=== PATIENT | female | born 1990 | race Caucasian/White ===

== ENCOUNTER → 2019-01-04 | Outpatient (CLI) | payer SELFPAY ==
--- NOTE | 2019-01-04 17:08 | RADIOLOGY REPORT (SQ) ---
EXAM DESCRIPTION: U/S OB 14+ TRNABD 1GES W/O DOP COMPLETED DATE/TIME: 01/04/2019 3:55 pm REASON FOR STUDY: Z34.02 ENCNTR FOR SUPRVSN OF NORMAL FIRST PREG, SECOND TRIMESTER Z34.02 ENCNTR FO R SUPRVSN OF NORMAL FIRST PREG, SECOND TRIME COMPARISON: None. TECHNIQUE: Static and Dynamic grayscale imaging performed of gravid uterus using transabdominal appr oach. Additional selected color Doppler and spectral images recorded. All stored on PACS. LIMITATIONS: Limited by positioning. FINDINGS: FETUSES SEEN:1 EGA: 16 week 2 day Calculated using BPD,FL,HC,AC documented on images. Mild discrepancy with clinica l dates (13 week 2 day). ROBERTO: 06/19/2019 EFW: 151 +/- 22 grams PERCENTILE: Not applicable. Fetus less than or equal to 20 weeks gestation. CHRISTOPHER: Largest vertical pocket is 2.6 cm. PLACENTA: Anterior. GRADE: I PRESENTATION: Variable. ANATOMY: HEART RATE: 152 beats per minute. FOUR CHAMBER HEART: Visualized. THREE VESSEL CORD: Not visualized. CORD INSERTION: Visualized. KIDNEYS AND BLADDER: Kidneys not visualized. Bladder looks normal. STOMACH: Visualized. Appears normal. SPINE: Not visualized. BRAIN AND LATERAL VENTRICLES: Not visualized. OTHER: Upper and lower extremities grossly normal. MATERNAL ADNEXA: Maternal ovaries not visualized. CERVICAL LENGTH: Not visualized. OTHER: No other significant finding. IMPRESSION: LIVING INTRAUTERINE . ESTIMATED GESTATIONAL AGE 16 week 2 day. Limited visualization of some structures, as above. Trimester of : Second trimester - 13 weeks 1 day to 27 weeks 6 days. TECHNICAL DOCUMENTATION: JOB ID: [id number] [employer]- All Rights Reserved Reading location - IP/workstation name: [email or web address]
== END ==
LOC: RAD 15:15
PROVIDERS: ATTEND Midwife
DX: Z34.02 Encounter for supervision of normal first pregnancy, second trimester (principal)
CPT/HCPCS: 76805

== ENCOUNTER → 2019-02-09 | Outpatient (CLI) | payer SELFPAY ==
--- NOTE | 2019-02-09 15:59 | RADIOLOGY REPORT (SQ) ---
EXAM DESCRIPTION: U/S OB 14+ TRNABD 1GES W/O DOP COMPLETED DATE/TIME: 02/09/2019 2:55 pm REASON FOR STUDY: Z34.02 ENCNTR FOR SUPRVSN OF NORMAL FIRST PREG, SECOND TRIMESTER Z34.02 ENCNTR FO R SUPRVSN OF NORMAL FIRST PREG, SECOND TRIME COMPARISON: 01/04/2019. TECHNIQUE: Static and Dynamic grayscale imaging performed of gravid uterus using transabdominal appr oach. Additional selected color Doppler and spectral images recorded. All stored on PACS. LIMITATIONS: None. FINDINGS: FETUSES SEEN:1 EGA: 20 week 1 day. Calculated using BPD,FL,HC,AC documented on images. No discrepancy with clinical dates. ROBERTO: 06/28/2019. EFW: 338 g. grams CHRISTOPHER: Largest pocket 3.9 cm. PLACENTA: Anterior. PRESENTATION: Cephalic. ANATOMY: HEART RATE: 152 beats per minute. FOUR CHAMBER HEART: Visualized. THREE VESSEL CORD: Yes. CORD INSERTION: Visualized. KIDNEYS AND BLADDER: Visualized. Appear normal. STOMACH: Visualized. Appears normal. SPINE: Normal as visualized. BRAIN AND LATERAL VENTRICLES: Visualized. Appear normal. OTHER: No other significant finding. MATERNAL ADNEXA: Maternal ovaries not visualized. CERVICAL LENGTH: 3.1 cm. Closed. OTHER: No other significant finding. IMPRESSION: LIVING INTRAUTERINE . ESTIMATED GESTATIONAL AGE 20 WEEK 1 DAY. NO VISUALIZED ANOMALIES. Trimester of : Second trimester - 13 weeks 1 day to 27 weeks 6 days. TECHNICAL DOCUMENTATION: JOB ID: [id number] [employer]- All Rights Reserved Reading location - IP/workstation name: [email or web address]
== END ==
LOC: RAD 13:27
PROVIDERS: ATTEND Midwife
DX: Z34.02 Encounter for supervision of normal first pregnancy, second trimester (principal)
CPT/HCPCS: 76805

== ENCOUNTER 2019-06-09 07:27 | Inpatient (IN) | payer MEDICAID ==
[2019-06-09] MEDS ORDERED: PENICILLIN G-K 5 MILLION UNIT VIAL ONE (08:32)
[2019-06-09] MEDS ORDERED: OXYTOCIN/NORMAL SALINE 20 UNIT/1,000 ML RTUINJ ONE (08:32)
[2019-06-09] MEDS ORDERED: OXYTOCIN 10 UNIT/ML VIAL ONE (08:32)
[2019-06-09] MEDS ORDERED: LIDOCAINE 1% INJ-PF (10 MG/ML) 30 ML SDV ONE (08:32)
[2019-06-09] MEDS ORDERED: MISOPROSTOL 0.2 MG TABLET ONE (08:32)
[2019-06-09] MEDS ORDERED: PENICILLIN G POTASSIUM 5,000,000 UNIT in DEXTROSE 5%-WATER 100 ML IV ONE (08:34)
[2019-06-09] MEDS ORDERED: RINGERS SOLUTION,LACTATED 1,000 ML IV ONE (08:34)
[2019-06-09] MEDS ORDERED: RINGERS SOLUTION,LACTATED 1,000 ML IV PRN (08:34)
--- NOTE | 2019-06-09 08:44 | Admission Physical ---
Datetime Report Generated by CPN: 06/09/2019 08:43 CURRENT ADMISSION Chief Complaint: Uterine Contractions; Suspected Ruptured Membranes Admit Impression : Term, Intrauterine ; Active Labor Admit Plan: Admit to Unit Admit Plan- Other: start PCN prophylaxis for GBS+ ALLERGIES Medication Allergies: No Medication Allergies: No Known Allergies (06/09/2019) Latex: No Latex Allergies OBSTETRICAL HISTORY EDC: 06/19/2019 00:00 : 1 Para: 0 Term: 0 : 0 SAB: 0 IAB: 0 Ectopic: 0 Livin Cesareans: 0 VBACs: 0 Multiple Births: 0 Gestational Diabetes: No Rh Sensitization: No Incompetent Cervix: No LAURA: No Infertility: No ART Treatment: No Uterine Anomaly: No IUGR: No Hx Previous C/S: No Macrosomia: No Hx Loss/Stillborn: No PIH: No Hx : No Placenta Previa/Abruption: No Depression/PP Depression: Yes PTL/PROM: No Post Hemorrhage: No Obstetrical History Comments: G1; current SEE RECORDS Alcohol: No Marijuana : Yes Cocaine: No Other Illicit Drugs: Yes Illicit Drug Comments: hx of opioid use, kratom, suboxone 4 yrs ago Cigarettes: Current Everyday Smoker. 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 Surgery: No Heart Disease: No Hosp/Surgery: No Autoimmune Disorder: No Anesthetic Complications: No Kidney Disease: No Abnormal Pap Smear: No Neuro/Epilepsy: No Psychiatric Disorders: Yes Other Medical Diseases: No Hepatitis/Liver Disease: No Significant Family History: No Varicosities/Phlebitis: No Trauma/Violence : No Thyroid Dysfunction: No Medical History Comments: bipolar disorder, depression, hx of marijuana, kratom, opiate abuse, suboxone, cigarettes INFECTIOUS HISTORY Gonorrhea: Yes Genital Herpes: No Chlamydia: Yes Tuberculosis: No Syphilis: No Hepatitis: No HIV/AIDS Exposure: No Rash or Viral Illness: No HPV: No PHYSICAL EXAM General: Normal HEENT: Normal Neurologic: Normal Thyroid: Normal Heart: Normal Lungs: Normal Breast: Normal Back: Normal Abdomen: Normal Genitourinary Exam: Normal Extremities: Normal DTRs: Normal Pelvic Type: Adequate Vital Signs: Reviewed MEMBRANES Membranes: Ruptured Amniotic Fluid Color: Bloody FETUS A EGA: 38.4 Monitoring: External US FHR- Baseline: 125 Variability: Moderate 6-25bpm Accelerations: 15X15 Decelerations: None Admit Comment: at 38.4 wks presents for a labor check. +GBS w/ Hx Bipolar. Hx substance abuse as well. Pt with SROM at 0837, clear blood tinged fluid. Rapid change of cervix to 5-6 cm per RN. Plan to admit and treat w/ PCN. Pt desires an epidural. Attending MD today is Dr Lennon PLANS FOR LABOR AND DELIVERY Labor and Delivery: None Pain Management: Medications; Epidural Feeding Preference: Both Benefit of Breast Feed Discussed: Yes Circumcision: Yes INFORMED CONSENT Assignment: Luda Lennon MD Signature: with User ID: [email or web address] : with User ID: [email or web address]
[2019-06-09 08:57] LABS: APPEARANCE,URINE CLOUDY; BILIRUBIN,URINE NEGATIVE (NEGATIVE); COLOR,URINE YELLOW; GLUCOSE, URINE NEGATIVE (NEGATIVE); KETONES,URINE NEGATIVE (NEGATIVE); LEUKOCYTE ESTERASE,URINE SMALL (NEGATIVE); NITRITE,URINE NEGATIVE (NEGATIVE); PROTEIN,URINE NEGATIVE (NEGATIVE); URINE SPECIFIC GRAVITY 1.019; UROBILINOGEN,URINE NEGATIVE mg/dL (<2.0)
[2019-06-09 09:13] LABS: ABSOLUTE LYMPHOCYTES (AUTO) 2.1 10^3/uL (0.5-4.7); ABSOLUTE MONOCYTES (AUTO) 0.8 10^3/uL (0.1-1.4); ABSOLUTE NEUT (AUTO) 15.1 10^3/uL (1.7-8.2); BASOPHILS % (AUTO) 0.2 % (0-2); EOSINOPHILS % (AUTO) 0.2 % (0-6); HEMOGLOBIN 13.1 g/dL (12.0-15.5); LYMPHOCYTES % (AUTO) 11.7 % (13-45); MEAN CORPUSCULAR HEMOGLOBIN 30.2 pg (27.0-33.4); MEAN CORPUSCULAR HGB CONC 33.6 g/dL (32.0-36.0); MEAN CORPUSCULAR VOLUME 90 fl (80-97); MONOCYTES % (AUTO) 4.3 % (3-13); PLATELET COUNT 249 10^3/uL (150-450); RED BLOOD COUNT 4.32 10^6/uL (3.72-5.28); RED CELL DISTRIBUTION WIDTH 13.9 % (11.5-14.0); SEGMENTED NEUTROPHILS % (AUTO) 83.6 % (42-78); TOTAL CELLS COUNTED % (AUTO) 100 %; WHITE BLOOD COUNT 18.1 10^3/uL (4.0-10.5)
[2019-06-09 09:27] LABS: URINE AMPHETAMINES SCREEN NEGATIVE; URINE BARBITURATES SCREEN NEGATIVE; URINE BENZODIAZEPINES SCREEN NEGATIVE; URINE COCAINE SCREEN NEGATIVE; URINE MARIJUANA (THC) SCREEN NEGATIVE; URINE METHADONE SCREEN NEGATIVE; URINE PHENCYCLIDINE SCREEN NEGATIVE
[2019-06-09] MEDS ORDERED: IBUPROFEN 800 MG TABLET ONE (09:46)
[2019-06-09] MEDS ORDERED: BENZOCAINE/MENTHOL AEROSOL SPRAY 56 ML ONE (09:46)
[2019-06-09] MEDS ORDERED: DIBUCAINE 1% OINTMENT 28 GM TP PRN (09:47)
[2019-06-09] MEDS ORDERED: MEASLES,MUMPS&RUBELLA VACC/PF 0.5 ML VIAL SUBCUT PRN (09:47)
[2019-06-09] MEDS ORDERED: ZOLPIDEM TARTRATE 5 MG TABLET PO PRN (09:47)
[2019-06-09] MEDS ORDERED: OXYTOCIN/NORMAL SALINE 20 UNIT/1,000 ML RTUINJ IV PRN (09:47)
[2019-06-09] MEDS ORDERED: BENZOCAINE/MENTHOL AEROSOL SPRAY 56 ML TOP PRN (09:47)
[2019-06-09] MEDS ORDERED: ACETAMINOPHEN WITH CODEINE #3 TABLET PO PRN (09:47)
[2019-06-09] MEDS ORDERED: DIPH/PERTUSS(ACELL)/TETANUS VAC/PF 0.5 ML SYR (>=10YO) IM PRN (09:47)
[2019-06-09] MEDS ORDERED: SERTRALINE HCL 50 MG TABLET PO SCH (10:00)
--- NOTE | 2019-06-09 10:41 | Warning Signs in Babies ---
VOD Warning Signs Datetime Report Generated by [facility]: 06/09/2019 10:41 VOD#608 -Warning Signs in Babies: Viewed with Parent(s)/Family (06/09/2019 10:41:Richard Snell RN)
--- NOTE | 2019-06-09 11:57 | Delivery Summary ---
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 of VMI, delivered SKYE, w/ loose NC and compound presentation of a hand. Baby placed on pts abdoman in stable condition, spointaneously crying. Cord clamped and cut after one minute. Cord blood obtained. Placenta S/C/I, ff w/ decreased bleeding. IV Pitocin infusing. Bilateral labial lacerations repaired. Pt desires to breastfeed. Baby taken over to NBN for evaluation. QBL pending. Attending MD is Dr Lennon LABOR SUMMARY EDC: 06/19/2019 00:00 No. Babies in Womb: 1 Attempted: No Labor Anesthesia: None LABOR INFORMATION Reason for Induction: Not Applicable Onset of Labor: 06/09/2019 07:51 Complete Dilatation: 06/09/2019 09:15 Oxytocin: N/A Group B Beta Strep: positive Antibiotics # of Doses: 1 Antibiotics Time of Last Dose: 844 Name of Antibiotic Given: Penicillin Steroids Given: None Reason Steroids Not Administered: Not Applicable MEMBRANES Membranes Rupture Method: Spontaneous Rupture of Membranes: 06/09/2019 08:27 Length of Rupture (hr): 0.90 Amniotic Fluid Color: Clear Amniotic Fluid Amount: Moderate STAGES OF LABOR Stage 1 hr: 1 Stage 1 min: 24 Stage 2 hr: 0 Stage 2 min: 6 Stage 3 hr: 0 Stage 3 min: -56 Total Time in Labor hr: 0 Total Time in Labor min: 34 VAGINAL DELIVERY Episiotomy: None Other Laceration: Labial Laceration Repair: Yes Laceration Repair Note: Bilateral Labial tares. 1% lidocaine injection given, 3.0 vicryl used. Pt tolerated well Sponge Count Correct: Yes Sharps Count Correct: N/A CSECTION DELIVERY Primary Indication: N/A Secondary Indication: N/A CSection Incidence: N/A Labor: N/A Elective: N/A CSection Incision: N/A BABY A INFORMATION Infant Delivery Date/Time: 06/09/2019 09:21 Method of Delivery: Vaginal Nurse Controlled Delivery: No Born in Route : No : N/A Forceps: N/A Vacuum Extraction: N/A Shoulder Dystocia : No PRESENTATION/POSITION BABY A Presentation: Cephalic Cephalic Presentation: Vertex Vertex Position: Left Occipital Anterior Breech Presentation: N/A PLACENTA INFORMATION BABY A Placenta Delivery Time : 06/09/2019 08:25 Placenta Method of Delivery: Spontaneous Placenta Status: Delivered SCORES BABY A Heart Rate 1 min: >100 bpm Resp Effort 1 min: Good Cry Reflex Irritability 1 min: Grimace Muscle Tone 1 min: Some Flexion of Extremities Color 1 min: Body [place], Extremities Blue SCORE 1 MIN: 7 Heart Rate 5 min: >100 bpm Resp Effort 5 min: Good Cry Reflex Irritability 5 min: Cough or Sneeze or Pulls Away Muscle Tone 5 min: Active Motion Color 5 min: Body [place], Extremities Blue SCORE 5 MIN: 9 INFORMATION BABY A Gestational Age at Delivery: 38.4 Gestational Status: Early Term- 37- 38.6 Weeks Infant Outcome : Liveborn Condition : Stable Infant Sex: Male IDENTIFICATION BABY A Infant Verification Date/Time: 06/09/2019 09:37 ID Band Number: [id number] Mother's Name Verified: Yes RN Verifying Infant: TMartin,RN Additional Verifying Personnel: Clyde WEIGHT/LENGTH BABY A Birthweight (gm): 2990 Weight (lb): 6 Weight (oz): 9 Length (in): 19.00 Length (cm): 48.26 CORD INFORMATION BABY A No. Cord Vessels: 3 Nuchal Cord : Around Neck x1, Loose Cord Blood Taken: Yes-For Storage (Mom's Blood type +) Infant Suction: None ASSESSMENT BABY A Skin to Skin: No BABY B INFORMATION : N/A SIGNATURES Assignment: Luda Lennon MD Signature: with User ID: [email or web address] : with User ID: [email or web address]
[2019-06-09] MEDS: IBUPROFEN 800 MG TABLET PO SCH ×3 (11:59→21:36)
[2019-06-09] MEDS: DOCUSATE SODIUM 100 MG CAPSULE PO SCH ×2 (11:59→17:42)
[2019-06-09] MEDS: SENNOSIDES/DOCUSATE 8.6-50 MG 1 EACH TABLET PO SCH (12:00)
[2019-06-09] MEDS: PRENATAL VITAMIN W DHA CAPSULE PO SCH (12:00)
[2019-06-09] MEDS ORDERED: PENICILLIN G POTASSIUM 2,500,000 UNIT in DEXTROSE 5%-WATER 50 ML IV SCH (12:36)
[2019-06-09] MEDS ORDERED: NICOTINE 14 MG/24 HR PATCH.TD24 TD ONE (18:00)
[2019-06-10] MEDS ORDERED: SERTRALINE HCL 50 MG TABLET PO ONE ×2 (00:15→00:30)
[2019-06-10] MEDS ORDERED: MELATONIN 5 MG TABLET PO ONE (00:30)
[2019-06-10] MEDS: IBUPROFEN 800 MG TABLET PO SCH ×3 (06:22→21:29)
[2019-06-10 07:47] LABS: MEAN CORPUSCULAR HEMOGLOBIN 30.5 pg (27.0-33.4); MEAN CORPUSCULAR VOLUME 90 fl (80-97); PLATELET COUNT 223 10^3/uL (150-450); RED BLOOD COUNT 3.57 10^6/uL (3.72-5.28); RED CELL DISTRIBUTION WIDTH 13.9 % (11.5-14.0); WHITE BLOOD COUNT 12.6 10^3/uL (4.0-10.5)
[2019-06-10 07:52] LABS: HEMOGLOBIN 10.9 g/dL (12.0-15.5)
[2019-06-10] MEDS: SENNOSIDES/DOCUSATE 8.6-50 MG 1 EACH TABLET PO SCH (10:16)
[2019-06-10] MEDS: DOCUSATE SODIUM 100 MG CAPSULE PO SCH ×2 (10:16→18:16)
[2019-06-10] MEDS: PRENATAL VITAMIN W DHA CAPSULE PO SCH (10:16)
--- NOTE | 2019-06-10 10:28 | PDOC PROGRESS REPORT ---
Subjective-OB Progress Note for:: 06/10/19 - PP Day #1, doing well, UOB, voiding and in the shower. Bottlefeeding, A+, rubella Immune Physical Exam (OB) Vital Signs: Temp Pulse Resp BP Pulse Ox 97.9 F 73 17 108/72 99 06/10/19 07:49 06/10/19 07:49 06/10/19 07:49 06/10/19 07:49 06/10/19 07:49 Intake & Output 06/09/19 06/10/19 06/11/19 06:59 06:59 06:59 Intake Total 500 Balance 500 Weight 72.4 kg - General General Appearance: Appears well In distress: None - PIH/Pre-Eclampsia Headache: Absent Epigastric Pain: No Visual Changes: No - Lochia Lochia Amount: Scant < 10 ml Lochia Color: Rubra/Red - Abdomen Description: Soft Hernia Present: No Fundal Description: Firm, Midline Fundal Height: u/u - u/2 - Genitourinary Genitourinary Note: voiding - Extremities Upper extremity: Normal inspection Lower extremities: Normal inspection - Neurological Cognition: Normal Objective-Diagnostic Laboratory: 06/10/19 07:24 06/10/19 07:24 WBC 12.6 H RBC 3.57 L Hgb 10.9 L D Hct 32.0 L MCV 90 MCH 30.5 MCHC 34.0 RDW 13.9 Plt Count 223 Assessment and Plan(PN) - Assessment and Plan (1) (normal spontaneous vaginal delivery) Is this a current diagnosis for this admission?: Yes (2) Group beta Strep positive Is this a current diagnosis for this admission?: Yes (3) Tobacco abuse Is this a current diagnosis for this admission?: Yes - Time Spent with Patient Time with patient: Less than 15 minutes Medications reviewed and adjusted accordingly: Yes - Disposition Anticipated Discharge: Home Within: within 24 hours
[2019-06-10] MEDS ORDERED: SERTRALINE HCL 50 MG TABLET PO SCH (20:00)
[2019-06-10] MEDS ORDERED: MELATONIN 5 MG TABLET PO SCH (22:00)
[2019-06-11] MEDS: IBUPROFEN 800 MG TABLET PO SCH ×2 (05:44→13:14)
[2019-06-11 07:44] VITALS: BP 124/78
[2019-06-11] MEDS: DOCUSATE SODIUM 100 MG CAPSULE PO SCH (09:55)
[2019-06-11] MEDS: PRENATAL VITAMIN W DHA CAPSULE PO SCH (09:55)
[2019-06-11] MEDS: SENNOSIDES/DOCUSATE 8.6-50 MG 1 EACH TABLET PO SCH (09:55)
--- NOTE | 2019-06-11 10:44 | PDOC DISCHARGE SUMMARY ---
Impression - Admit/DC Date/PCP Admission Date/Primary Care Provider: 06/09/19 08:34 SINDI BRISCOE MD Discharge Date: 06/11/19 - PP Day#2, doing well, Desires Depo Provera prior to d/c home today. A+. rubella Immune. . - Discharge Diagnosis (1) (normal spontaneous vaginal delivery) Is this a current diagnosis for this admission?: Yes (2) Group beta Strep positive Is this a current diagnosis for this admission?: Yes (3) Tobacco abuse Is this a current diagnosis for this admission?: Yes - Additional Information Resuscitation Status: Full Code Discharge Diet: As Tolerated, Regular Discharge Activity: Activity As Tolerated, No Lifting Over 10 Pounds, Pelvic Rest Referrals: SINDI BRISCOE MD [Primary Care Provider] - Prescriptions: Ibuprofen [Motrin 800 mg Tablet] 800 mg PO Q8 #60 tablet Home Medications: Sertraline HCl [Zoloft 50 mg Tablet] 50 mg PO DAILY 06/09/19 Ibuprofen [Motrin 800 mg Tablet] 800 mg PO Q8 #60 tablet 06/11/19 Vit/Dha [ Multi + Dha Capsule] 1 cap PO DAILY capsule 06/11/19 HPI Reason(s) for Admission: Onset of Labor Procedures: Ultrasound Intrapartum Procedure(s): Spontaneous Vaginal Delivery Results Laboratory Results: WBC 12.6 10^3/uL (4.0-10.5) H 06/10/19 07:24 RBC 3.57 10^6/uL (3.72-5.28) L 06/10/19 07:24 Hgb 10.9 g/dL (12.0-15.5) L D 06/10/19 07:24 Hct 32.0 % (36.0-47.0) L 06/10/19 07:24 MCV 90 fl (80-97) 06/10/19 07:24 MCH 30.5 pg (27.0-33.4) 06/10/19 07:24 MCHC 34.0 g/dL (32.0-36.0) 06/10/19 07:24 RDW 13.9 % (11.5-14.0) 06/10/19 07:24 Plt Count 223 10^3/uL (150-450) 06/10/19 07:24 Lymph % (Auto) 11.7 % (13-45) L 06/09/19 08:47 [place] % (Auto) 4.3 % (3-13) 06/09/19 08:47 Eos % (Auto) 0.2 % (0-6) 06/09/19 08:47 Baso % (Auto) 0.2 % (0-2) 06/09/19 08:47 Absolute Neuts (auto) 15.1 10^3/uL (1.7-8.2) H 06/09/19 08:47 Absolute Lymphs (auto) 2.1 10^3/uL (0.5-4.7) 06/09/19 08:47 Absolute Monos (auto) 0.8 10^3/uL (0.1-1.4) 06/09/19 08:47 Absolute Eos (auto) 0.0 10^3/uL (0.0-0.6) 06/09/19 08:47 Absolute Basos (auto) 0.0 10^3/uL (0.0-0.2) 06/09/19 08:47 Seg Neutrophils % 83.6 % (42-78) H 06/09/19 08:47 Urine Color YELLOW 06/09/19 07:45 Urine Appearance CLOUDY 06/09/19 07:45 Urine pH 8.0 (5.0-9.0) 06/09/19 07:45 Ur Specific [place] 1.019 06/09/19 07:45 Urine Protein NEGATIVE mg/dL (NEGATIVE) 06/09/19 07:45 Urine Glucose (UA) NEGATIVE mg/dL (NEGATIVE) 06/09/19 07:45 Urine Ketones NEGATIVE mg/dL (NEGATIVE) 06/09/19 07:45 Urine Blood MODERATE (NEGATIVE) H 06/09/19 07:45 Urine Nitrite NEGATIVE (NEGATIVE) 06/09/19 07:45 Urine Bilirubin NEGATIVE (NEGATIVE) 06/09/19 07:45 Urine Urobilinogen NEGATIVE mg/dL (<2.0) 06/09/19 07:45 Ur Leukocyte Esterase SMALL (NEGATIVE) H 06/09/19 07:45 Urine Ascorbic Acid NEGATIVE (NEGATIVE) 06/09/19 07:45 Urine Opiates Screen NEGATIVE 06/09/19 07:45 Urine Methadone Screen NEGATIVE 06/09/19 07:45 Ur Barbiturates Screen NEGATIVE 06/09/19 07:45 Ur Phencyclidine Scrn NEGATIVE 06/09/19 07:45 Ur Amphetamines Screen NEGATIVE 06/09/19 07:45 U Benzodiazepines Scrn NEGATIVE 06/09/19 07:45 Urine Cocaine Screen NEGATIVE 06/09/19 07:45 U Marijuana (THC) Screen NEGATIVE 06/09/19 07:45 RPR NONREACTIVE (NONREACTIVE) 06/09/19 08:47 Blood Type A POSITIVE 06/09/19 08:47 Antibody Screen NEGATIVE 06/09/19 08:47 Plan Plan of Treatment: d/c to home, Depo Provera injection today. f/up with [facility] in 4 wks Time Spent: Less than 30 Minutes
[2019-06-11] MEDS ORDERED: MEDROXYPROGESTERONE ACET INJ 150 MG/1 ML VIAL IM ONE (12:00)
== END 2019-06-11 14:00 | disposition home or self-care (01) | DRG 807 ==
LOC: LC 07:27 → LR 08:34 → 2S 12:05
PROVIDERS: ADMIT Obstetrics & Gynecology; ATTEND Obstetrics & Gynecology
PROC: 10E0XZZ Delivery of Products of Conception, External Approach (ICD-10-PCS; principal; 2019-06-09)
PROC: 0HQ9XZZ Repair Perineum Skin, External Approach (ICD-10-PCS; 2019-06-09)
PROC: 3E0234Z Introduction of Serum, Toxoid and Vaccine into Muscle, Percutaneous Approach (ICD-10-PCS; 2019-06-11)
DX: O99.824 Streptococcus B carrier state complicating childbirth (principal); O70.0 First degree perineal laceration during delivery; O99.334 Smoking (tobacco) complicating childbirth; Z37.0 Single live birth; O99.344 Other mental disorders complicating childbirth; O69.81X0 Labor and delivery complicated by cord around neck, without compression, not applicable or unspecified; O62.3 Precipitate labor; F17.210 Nicotine dependence, cigarettes, uncomplicated; Z86.19 Personal history of other infectious and parasitic diseases; Z3A.38 38 weeks gestation of pregnancy; Z23 Encounter for immunization
CPT/HCPCS: 36415; 80307; 81005; 85025; 85027; 86592; 86850; 86900; 86901; 88307; 90715; 94760; J1050; J2540; J2590; J3490; J7060